=== PATIENT | male | born 1980 | race African-American/Black ===

== ENCOUNTER 2021-10-16 02:19 | Emergency (ER) | payer SELFPAY ==
[~2021-10-16] VITALS: Ht 195.6 cm; Wt 154.4 kg
[2021-10-16 02:24] VITALS: BP 135/75
--- NOTE | 2021-10-16 02:29 | NUR ---
pt taken to bed 11.
--- NOTE | 2021-10-16 02:39 | NUR ---
41 M BIB SELF C/O 03/07 rt hand pain [id number] s/p slamming car door on hand. limited rom d/t pain. pt states door slammed along knuckles. PT ABLE TO MOVE FINGERS WHEN ASKED. NO PAIN ANYWHERE ELSE RIGHT NOW. PT RESTING IN BED. HX: ASTHMA denies rx and allergies
--- NOTE | 2021-10-16 02:39 | NUR ---
JAIMEE RIZO ASSESSING PT AT BEDSIDE
[2021-10-16] MEDS ORDERED: HYDROcodone/APAP 5/325 MG 1 TAB TAB PO ONE (02:40)
[2021-10-16] MEDS ORDERED: IBUP-2213 PO (03:00)
[2021-10-16 03:07] VITALS: BP 135/75
--- NOTE | 2021-10-16 03:08 | NUR ---
Patient discharged with v/s stable. Written and verbal after care instructions given and explained. Patient alert, oriented and verbalized understanding of instructions. with steady gait. All questions addressed prior to discharge. ID band removed. Patient advised to follow up with PMD. Rx of IBUPROFEN given. Patient educated on indication of medication including possible reaction and side effects. Opportunity to ask questions provided and answered.
== END 2021-10-16 03:05 | disposition home or self-care (01) ==
LOC: MED 02:19
DX: S63.91XA Sprain of unspecified part of right wrist and hand, initial encounter (principal); J45.909 Unspecified asthma, uncomplicated; W23.0XXA Caught, crushed, jammed, or pinched between moving objects, initial encounter; Y93.89 Activity, other specified; Y92.89 Other specified places as the place of occurrence of the external cause; Y99.8 Other external cause status
CPT/HCPCS: 29125; 73130; 99283; Q0092

== ENCOUNTER 2022-04-30 17:35 | Emergency (ER) | payer SELFPAY ==
[~2022-04-30] VITALS: Ht 195.6 cm; Wt 156.9 kg
[~2022-04-30 17:35] MED LIST: IBUP-2213 PO
[2022-04-30 17:46] VITALS: BP 138/84
--- NOTE | 2022-04-30 18:00 | NUR ---
42/M WALKED IN C/O BILATERAL EARACHE X2DAYS, STATES THAT HIS HEARING IS MUFFLED. AAO4, AMBULATORY, VITALS STABLE. NO ACUTE DISTRESS NOTED. NKA PMH: ASTHMA
[2022-04-30] MEDS ORDERED: AMOX-999 PO (18:17)
[2022-04-30] MEDS ORDERED: IBUP-2213 PO (18:17)
[2022-04-30] MEDS ORDERED: CIPR7.5S OT (18:17)
== END 2022-04-30 18:50 | disposition home or self-care (01) ==
LOC: MED 17:35
DX: H60.92 Unspecified otitis externa, left ear (principal); H66.92 Otitis media, unspecified, left ear; J45.909 Unspecified asthma, uncomplicated; Z79.899 Other long term (current) drug therapy
CPT/HCPCS: 99283

== ENCOUNTER 2023-11-09 19:35 | Emergency (ER) | payer OTHER ==
[~2023-11-09] VITALS: Ht 198.1 cm; Wt 155.1 kg
[~2023-11-09 19:35] MED LIST changes: +AMOX-999 PO; +CIPR7.5S OT
[2023-11-09 19:43] VITALS: BP 159/93; PULSE 95; RESP 16; TEMP 97.4; O2SAT 97
[2023-11-09 20:41] LABS: BASOPHILS % (AUTO) 0.5 % (0.0-2.0); EOSINOPHILS # (AUTO) 0.2 K/uL (0-0.4); EOSINOPHILS % (AUTO) 2.9 % (0.0-4.0); HEMATOCRIT 41.7 % (36-52); HEMOGLOBIN 14.3 g/dL (12.0-18.0); LYMPHOCYTES # (AUTO) 2.3 K/uL (2.0-11.5); LYMPHOCYTES % (AUTO) 26.8 % (20.5-51.1); MEAN CORPUSCULAR HEMOGLOBIN 28 pg (27-31); MEAN CORPUSCULAR HGB CONC 34 g/dL (33-37); MEAN CORPUSCULAR VOLUME 80.8 fL (80-94); MONOCYTES # (AUTO) 0.7 K/uL (0.8-1.0); MONOCYTES % (AUTO) 8.6 % (1.7-9.3); NEUTROPHILS # (AUTO) 5.3 K/uL (1.8-7.7); NEUTROPHILS % (AUTO) 61.2 % (42.2-75.2); PLATELET COUNT (AUTO) 248 K/uL (140-450); RED BLOOD CELL COUNT(AUTO) 5.16 MIL/uL (4.20-6.10); RED CELL DISTRIBUTION WIDTH 14.2 % (11.6-13.7); WHITE BLOOD COUNT (AUTO) 8.6 K/uL (4.8-10.8)
[2023-11-09 20:51] LABS: ANION GAP 11.9 (8-16); CALCIUM 8.9 mg/dL (8.5-10.1); CARBON DIOXIDE 26.8 mmol/L (21-32); CREATININE 1.3 mg/dL (0.6-1.3); POTASSIUM 3.7 mmol/L (3.5-5.1)
[2023-11-09 22:04] VITALS: BP 148/93
[2023-11-09] MEDS: predniSONE 20 MG TAB PO ONE (22:19)
[2023-11-09] MEDS: KETOROLAC 30 MG/ML VIAL IM ONE (22:20)
[2023-11-09] MEDS ORDERED: IBUP-2213 PO (22:28)
[2023-11-09] MEDS ORDERED: ALBU0.0912 IH (22:28)
[2023-11-09] MEDS ORDERED: AZIT250T4 PO (22:28)
[2023-11-09] MEDS ORDERED: PRED20TA5 PO (22:28)
[2023-11-09] MEDS: ALBUTEROL SULFATE/IPRATROPIU 3 ML SOL IH ONE (22:45)
[2023-11-09 22:46] VITALS: PULSE 89; RESP 16; O2SAT 99
[2023-11-09 23:04] VITALS: TEMP 99.2
== END 2023-11-09 23:04 | disposition home or self-care (01) ==
LOC: MED 19:35
DX: J20.9 Acute bronchitis, unspecified (principal); J45.901 Unspecified asthma with (acute) exacerbation; R07.81 Pleurodynia; R03.0 Elevated blood-pressure reading, without diagnosis of hypertension; Z86.79 Personal history of other diseases of the circulatory system; Z79.1 Long term (current) use of non-steroidal anti-inflammatories (NSAID); Z79.2 Long term (current) use of antibiotics; Z79.899 Other long term (current) drug therapy
CPT/HCPCS: 36415; 71045; 80048; 84484; 85025; 93005; 94640; 96372; 99285; J1885; J7512

== ENCOUNTER 2024-01-24 08:32 | Emergency (ER) | payer OTHER ==
[~2024-01-24] VITALS: Ht 198.1 cm; Wt 147.5 kg
[~2024-01-24 08:32] MED LIST changes: +ALBU0.0912 IH; +AZIT250T4 PO; +PRED20TA5 PO
[2024-01-24 08:42] VITALS: BP 133/75; PULSE 91; RESP 17
[2024-01-24] MEDS: KETOROLAC 30 MG/ML VIAL IM ONE (09:13)
[2024-01-24 09:44] LABS: APPEARANCE,URINE CLEAR (CLEAR); BILIRUBIN,URINE NEGATIVE (NEGATIVE); BLOOD, URINE 1+ (NEGATIVE); COLOR,URINE YELLOW (YELLOW); LEUKOCYTE ESTERASE ,URINE NEGATIVE (NEGATIVE); NITRITE, URINE NEGATIVE (NEGATIVE); PROTEIN,URINE NEGATIVE (NEGATIVE); UGLUCOSE NEGATIVE (NEGATIVE); UROBILINOGEN,URINE 0.2 EU/dL (0.2 - 1)
[2024-01-24 09:52] LABS: BACTERIA,URINE 1+ /HPF (None Seen); MUCUS,URINE 1+ /LPF (None Seen); SQUAMOUS EPITHELIAL CELL,UR 0-3 (FEW) /LPF (0-3 (FEW)); WBC,URINE 0-5 /HPF (0-5)
[2024-01-24] MEDS: MORPHINE SULFATE 4 MG/ML SYR IVP ONE (11:06)
[2024-01-24] MEDS: NACL 0.9% 1,000 ML IV ONE (11:07)
[2024-01-24] MEDS ORDERED: CEPH-588 PO (13:16)
[2024-01-24 13:30] VITALS: BP 133/81; PULSE 76; RESP 16; TEMP 98; O2SAT 94
== END 2024-01-24 13:30 | disposition home or self-care (01) ==
LOC: MED 08:32
DX: R10.9 Unspecified abdominal pain (principal); G43.909 Migraine, unspecified, not intractable, without status migrainosus; J45.909 Unspecified asthma, uncomplicated; Z79.1 Long term (current) use of non-steroidal anti-inflammatories (NSAID); Z79.2 Long term (current) use of antibiotics; Z79.899 Other long term (current) drug therapy
CPT/HCPCS: 74176; 81001; 87086; 96361; 96372; 96374; 99285; J1885; J2270; J7030